=== PATIENT | female | born 1990 | race Caucasian/White ===

== ENCOUNTER 2016-07-22 01:25 | Emergency (ER) | payer OTHER ==
--- NOTE | ~2016-07-22 | CT2 ---
[facility] A Service of [facility] & [facility] RADIOLOGY TEXT RESULTS PATIENT: ELLEN HART LOCATION: [facility] : 88 UNIT #: [id number] AGE: [address]: Marifer Heller MD SEX: F ORDER DR: [id number] [facility] [address] [place], [place] [address] [id number] E MR#: [id number] Acc #: [id number] NAME: ELLEN HART : 1990 SEX: F STUDY DATE/TIME: 07/22/2016 8:09 UNIT: [facility] ROOM: STUDY DESCRIPTION: CT Abd and Pelv W Cont Attending Physician: Marifer Heller M.D. Ordering Physician: Kapil Lu Aprn MEDICAL IMAGING REPORT This report is preliminary unless electronic signature is present EXAM Abdomen and pelvis CT with contrast, 07/22/2016 INDICATION 25-year-old female with lower abdominal pain for 5 days. Unable to eat. History of tubal ligation and procedures. Hypothyroidism. TECHNIQUE Contrast-enhanced abdomen and pelvis CT was performed. This CT exam was performed with one or more of the following radiation dose reduction techniques: automatic exposure control, adjustment of mA and/or kV according to patient size, and iterative reconstruction. COMPARISON We have no comparisons. FINDINGS CT ABDOMEN: There are atelectatic changes in the lung bases right greater than left. No effusion. Aorta demonstrates no aneurysm or dissection. Minimal, if any, fatty infiltration of the liver. Solid abdominal organs are otherwise unremarkable. Kidneys demonstrate no hydronephrosis. There is some minimal cortical scarring on the right. CT PELVIS: Bladder unremarkable. No free fluid or drainable fluid collection in the pelvis. In the left adnexa there is a 4.8 cm cyst. This is likely physiologic. No inflammatory change in the left adnexa or drainable fluid collection. A followup ultrasound could be performed in 6-8 weeks for reassessment of stability or interval decrease in size after subsequent menstrual cycles. Bowel demonstrates no inflammatory change or obstruction and the appendix is normal. Inguinal canals are normal. [facility] A Service of [facility] & [facility] RADIOLOGY TEXT RESULTS PATIENT: ELLEN HART [facility] #: [id number] : 88 UNIT #: [id number] AGE: [address]: Marifer Heller MD SEX: F ORDER DR: No suspicious bone lesion. IMPRESSION 1. Benign appearing cyst associated with the left ovary measures 4.8 cm. 2. The appendix is normal. 3. Otherwise negative contrast-enhanced abdomen and pelvis CT. Dictated by... Michael Garcia M.D. THIS IS AN ELECTRONICALLY VERIFIED REPORT Michael Garcia M.D. at 07/23/2016 2:15 PM [place] TD: 07/22/2016 10:26 JOB #: [id number] MEDICAL IMAGING REPORT Page 1 of 1 COPY
[2016-07-22 03:48] LABS: URINE SOURCE CLEAN CATCH
[2016-07-22 04:02] LABS: BASOPHIL% 0.3 % (0-2.5); EOSINOPHIL# 0.3 X10e3 (0-0.7); EOSINOPHIL% 4.3 % (0.0-7.0); HEMATOCRIT 34.8 % (35.0-45.0); HEMOGLOBIN 11.2 gm/dL (12.0-16.0); LYMPHOCYTE# 2.4 X10e3 (1.0-3.5); LYMPHOCYTE% 34.2 % (17.0-45.0); MEAN CELL VOLUME 76.2 FL (83-96); MEAN CORPUSCULAR HEMOGLOBIN 24.5 PG (28-34); MEAN CORPUSCULAR HGB CONC 32.2 g/dL (30-36); MEAN PLATELET VOLUME 8.5 FL (6.5-11.5); MONOCYTE# 0.6 X10e3 (0-1.0); MONOCYTE% 9.3 % (3.0-12.0); NEUTROPHIL# 3.6 X10e3 (1.5-7.1); NEUTROPHIL% 51.9 % (40-75); PLATELET COUNT 306 X10e3 (140-420); RED BLOOD COUNT 4.57 X10e (3.90-5.30); RED CELL DISTRIBUTION WIDTH 15.4 % (11.0-15.5)
[2016-07-22 04:06] LABS: DIFF IND NO
[2016-07-22 04:07] LABS: URINE APPEARANCE CLOUDY; URINE BILIRUBIN NEG (NEG); URINE BLOOD NEG (NEG); URINE COLOR YELLOW; URINE GLUCOSE NEG (NEG); URINE KETONE NEG (NEG); URINE LEUKOCYTE ESTERASE 1+ (NEG); URINE NITRATE NEG (NEG); URINE PH 5.5 (5-8); URINE PROTEIN NEG (NEG); URINE SPECIFIC GRAVITY 1.023 (1.003-1.035); URINE UROBILINOGEN 0.2 MG/DL (NEG)
[2016-07-22 04:12] LABS: CULTURE INDICATED? YES; URINE BACTERIA AUWI 2+ (NEGATIVE); URINE SQUAMOUS EPITHELIAL CELL FEW /[HPF]
[2016-07-22 04:25] LABS: BILIRUBIN, DIRECT 0.1 mg/dL (0.0-0.2); BILIRUBIN,INDIRECT 0.4 mg/dL (0.0-0.9); BILIRUBIN,TOTAL 0.5 mg/dL (0.2-2.0); CALCIUM SERUM 8.6 mg/dL (8.4-10.2); CREATININE SERUM 0.5 mg/dL (0.6-1.4); GLOM FILT RATE Estimated 133.6 mL/min (>60); POTASSIUM 3.6 mmol/L (3.5-5.1); PROTEIN TOTAL SERUM 7.4 g/dL (6.0-8.3)
[2016-07-22 04:26] LABS: URINE CRYSTALS CALCIUM OXALATE /[HPF]
[2016-07-24 08:05] LABS: CHLAMYDIA TRACH Not Detected (Not Detected); N GONOR Not Detected (Not Detected)
== END 2016-07-22 10:35 | disposition home or self-care (01) ==
LOC: CED 01:25
PROVIDERS: Emergency Medicine
DX: N73.9 Female pelvic inflammatory disease, unspecified (principal); R19.7 Diarrhea, unspecified; E03.9 Hypothyroidism, unspecified; F32.9 Major depressive disorder, single episode, unspecified; Z98.51 Tubal ligation status
CPT/HCPCS: 36415; 74177; 80048; 80076; 81003; 82150; 83690; 84703; 85025; 87086; 87088; 87491; 87591; 87808; 87905; 96360; 96372; 99284; J0696; J1885; Q9967